=== PATIENT | female | born 1990 | race Caucasian/White ===

== ENCOUNTER 2017-10-03 21:50 | Emergency (ER) | payer MEDICARE ==
[~2017-10-03] VITALS: Ht 137.2 cm; Wt 81.6 kg
[2017-10-03] MEDS ORDERED: LACTATED RINGERS 1,000 ML IV ONE (21:53)
--- OUTSIDE RECORDS SUMMARY | 2017-10-03 21:56 | XMS REPORT | Continuity of Care Document ---
Author Author [facility] Organization [facility] Address Unknown Phone Unavailable Allergies Active Description Code Type Severity Reaction Onset Reported/Identified Relationship to Patient Clinical Status Yes cefaclor [id number] Drug Allergy Unknown N/A 10/11/2014 Yes Fish Containing Products [id number] Drug Allergy Unknown N/A 10/11/2014 Yes lorazepam [id number] Drug Allergy Unknown N/A 10/11/2014 Yes Penicillins [id number] Drug Allergy Unknown N/A 10/11/2014 Medications There is no data. Problems Date Dx Coded Attending Type Code Diagnosis Diagnosed By 05/22/2011 Ot 345.90 EPILEPSY UNSPEC W/O MENTION INTRACTABLE 05/22/2011 Ot V58.69 OT MED,LT, CURRENT USE 10/11/2014 JANE ODONNELL MACHINE TOOL BUILDER Ot 873.42 OPEN WOUND OF FOREHEAD 10/11/2014 JANE ODONNELL MACHINE TOOL BUILDER Ot E000.8 OTHER EXTERNAL CAUSE STATUS 10/11/2014 JANE ODONNELL MACHINE TOOL BUILDER Ot E849.7 ACCID IN RESIDENT INSTIT 10/11/2014 JANE ODONNELL MACHINE TOOL BUILDER Ot E884.3 FALL FROM WHEELCHAIR 10/11/2014 JANE ODONNELL MACHINE TOOL BUILDER Ot V06.1 [id number], COMBINED [ 01/23/2016 GELLENDER DOTORSTEN Ot M79.9 SOFT TISSUE DISORDER, UNSPECIFIED 01/26/2016 GELLENDER TORSTEN GUILLEN Ot M79.9 SOFT TISSUE DISORDER, UNSPECIFIED 02/02/2016 GELLENDER TORSTEN GUILLEN Ot M79.9 SOFT TISSUE DISORDER, UNSPECIFIED 02/02/2016 GELLENDER TORSTEN GUILLEN Ot M79.9 SOFT TISSUE DISORDER, UNSPECIFIED 02/04/2016 GELLENDER TORSTEN GUILLEN Ot J98.11 ATELECTASIS 02/04/2016 GELLENTORSTEN VILLASEÑOR DO Ot R91.8 OTHER NONSPECIFIC ABNORMAL FINDING OF GENNY 02/05/2016 TORSTEN SILVER DO Ot F79 UNSPECIFIED INTELLECTUAL DISABILITIES 02/05/2016 GELLENDER DO, TORSTEN A Ot R10.84 GENERALIZED ABDOMINAL PAIN 02/08/2016 GELLENDER DO, TORSTEN Ramos Ot F79 UNSPECIFIED INTELLECTUAL DISABILITIES 02/08/2016 GELLENDER DO, TORSTEN A Ot R10.84 GENERALIZED ABDOMINAL PAIN 02/13/2016 GELLENDER DO, TORSTEN Ramos Ot J18.9 PNEUMONIA, UNSPECIFIED ORGANISM 02/18/2016 GELLENDER DO, TORSTEN Ramos Ot J18.9 PNEUMONIA, UNSPECIFIED ORGANISM 03/02/2016 GELLENDER DO, TORSTEN Ramos Ot F79 UNSPECIFIED INTELLECTUAL DISABILITIES 03/02/2016 GELLENDER DO, TORSTEN Ramos Ot R10.84 GENERALIZED ABDOMINAL PAIN 03/03/2016 GELLENDER DO, TORSTEN Ramos Ot J98.11 ATELECTASIS 03/03/2016 GELLENDER DO, TORSTEN Ramos Ot R91.8 OTHER NONSPECIFIC ABNORMAL FINDING OF GENNY 03/05/2016 GELLENDER DO, TORSTEN Ramos Ot J18.9 PNEUMONIA, UNSPECIFIED ORGANISM 03/05/2016 GELLENDER DO, TORSTEN Ramos Ot F79 UNSPECIFIED INTELLECTUAL DISABILITIES 03/05/2016 GELLENDER DO, TORSTEN Ramos Ot R10.84 GENERALIZED ABDOMINAL PAIN 03/05/2016 GELLENDER DO, TORSTEN Ramos Ot J98.11 ATELECTASIS 03/05/2016 GELLENDER DO, TORSTEN Ramos Ot R91.8 OTHER NONSPECIFIC ABNORMAL FINDING OF GENNY 03/18/2016 GELLENDER DO, TORSTEN Ramos Ot J18.9 PNEUMONIA, UNSPECIFIED ORGANISM 03/18/2016 GELLENDER DO, TORSTEN Ramos Ot J18.9 PNEUMONIA, UNSPECIFIED ORGANISM 04/13/2016 GELLENDER DO, TORSTEN Ramos Ot J18.9 PNEUMONIA, UNSPECIFIED ORGANISM 04/16/2016 GELLENDER DO, TORSTEN Ramos Ot R50.9 FEVER, UNSPECIFIED 04/27/2016 GELLENDER DO, TORSTEN Ramos Ot J18.9 PNEUMONIA, UNSPECIFIED ORGANISM 05/14/2016 GELLENDER DO, TORSTEN Ramos Ot R50.9 FEVER, UNSPECIFIED 05/14/2016 GELLENDER DO, TORSTEN Ramso Ot R56.9 UNSPECIFIED CONVULSIONS 05/14/2016 GELLENDER DO, TORSTEN Ramos Ot R91.8 OTHER NONSPECIFIC ABNORMAL FINDING OF GENNY 05/14/2016 GELLENDER DO, TORSTEN Ramos Ot R50.9 FEVER, UNSPECIFIED 05/24/2016 GELLENDER DO, TORSTEN Ramos Ot R50.9 FEVER, UNSPECIFIED 06/07/2016 GELLENDER DO, TORSTEN Ramos Ot R50.9 FEVER, UNSPECIFIED 06/07/2016 GELLENDER DO, TORSTEN Ramos Ot R56.9 UNSPECIFIED CONVULSIONS 06/07/2016 GELLENDER DO, TORSTEN Ramos Ot R91.8 OTHER NONSPECIFIC ABNORMAL FINDING OF GENNY 06/11/2016 GELLENDER DOTORSTEN Ot R50.9 FEVER, UNSPECIFIED 06/11/2016 GELLENDER DO, TORSTEN Ramos Ot R56.9 UNSPECIFIED CONVULSIONS 06/11/2016 GELLENDER DO, TORSTEN Ramos Ot R91.8 OTHER NONSPECIFIC ABNORMAL FINDING OF GENNY Procedures There is no data. Results There is no data. Encounters ACCT No. Visit Date/Time Discharge Status Pt. Type Provider Facility Loc./Unit Complaint [id number] 04/15/2016 13:15:00 04/15/2016 23:59:59 CLS Outpatient TORSTEN SILVER DO [facility] RAD INCREASED TEMP, FATIGUE,WEAKNESS,FEVER [id number] 03/17/2016 09:32:00 03/17/2016 23:59:59 CLS Outpatient TORSTEN SILVER DO [facility] RAD [id number] 03/12/2016 12:11:00 03/12/2016 23:59:59 CLS Outpatient TORSTEN SILVER DO [facility] RAD CHANGE IN DIET CHECK FO ASPIRATION [id number] 02/12/2016 11:42:00 02/12/2016 23:59:59 CLS Outpatient TORSTEN SILVER DO [facility] RAD [id number] 02/03/2016 13:50:00 02/03/2016 23:59:59 CLS Outpatient TORSTEN SILVER DO [facility] RAD [id number] 02/02/2016 08:44:00 02/02/2016 23:59:59 CLS Outpatient TORSTEN SILVER DO [facility] RAD [id number] 01/22/2016 14:26:00 01/22/2016 23:59:59 CLS Outpatient TORSTEN SILVER DO [facility] RAD [id number] 10/11/2014 19:02:00 10/11/2014 19:41:00 DIS Emergency JANE ODONNELL APRN [facility] [id number] 05/22/2011 19:39:00 Document Registration
--- NOTE | 2017-10-03 22:13 | ED Fever ---
History of Present Illness General Stated Complaint: FEVER Source: EMS, [facility] records, old records (ALL [facility] IS FROM OLD RECORDS) Exam Limitations: other (PT IS NON-VERBAL/NON-COMMUNICATIVE--REPORTEDLY FROM PRIOR TRAUMATIC BRAIN INJURY) History of Present Illness Time seen by provider: 21:51 Initial Comments PT ARRIVES [facility] EMS FROM [facility] PT HAS BEEN SICK X 3 DAYS NO TESTS DONE, BUT WAS STARTED ON ZITHROMAX AND TAMIFLU THIS AFTERNOON PT HAS HAD FEVER UP TO 104 HAD TYLENOL 650 MG AT 2100 AND IBUPROFEN 400 MG AT 1900 PT VOMITED YESTERDAY, AND NO INTAKE OF FOOD OR FLUIDS TODAY, SO SENT HERE TONIGHT "FOR IV FLUIDS" PT NOTED TO HAVE OCCASIONAL LOOSE, MOIST COUGH ON ARRIVAL TO ER NO EVIDENCE OF DYSPNEA OR DISTRESS. PCP: DR SILVER Allergies and Home Medications Allergies Coded Allergies: Fish Containing Products (Unverified Allergy, Unknown, 10/11/14) Penicillins (Unverified Allergy, Unknown, 10/11/14) cefaclor (Unverified Allergy, Unknown, 10/11/14) lorazepam (Unverified Allergy, Unknown, 10/11/14) Home Medications Unable to Obtain Active Prescriptions or Reported Meds Constitutional: see HPI, fever, other (PT IS NON-VERBAL) Respiratory: cough Gastrointestinal: loss of appetite, vomiting Past Nrxmwdt-Oqauho-Nykvue Hx Patient Social History Smoking Status: Unknown if Ever Smoked Recent Foreign Travel: No Contact w/Someone Who Travel: No Immunizations Up To Date Date of Influenza Vaccine: Jul 30, 2014 Surgeries History of Surgeries: Yes (JACOB RODS IN BACK ) Surgeries: Appendectomy, Orthopedic Neurological History of Neurological Disord: Yes Neurological Disorders: Cerebral Palsy, Seizure Disorder, Traumatic Brain Injury Reproductive System Hx Reproductive Disorders: No Sexually Transmitted Disease: No Gastrointestinal History of Gastrointestinal Di: Yes Gastrointestinal Disorders: Chronic Constipation Musculoskeletal History of Musculoskeletal Dis: Yes (CEREBRAL PALSY; NON-AMBULATORY; JACOB RODS IN BACK) Musculoskeletal Disorders: Contracture Endocrine History of Endocrine Disorders: Yes (OBESITY) Endocrine Disorders: Hypothyroidsim Physical Exam Vital Signs Vital Sign - Last 12Hours 10/03/17 22:07 Temp 102.3 Pulse 105 Resp 16 B/P (MAP) 125/81 (96) Pulse Ox 95 Capillary Refill : General Appearance: no apparent distress, obese, other (SUCKING ON WET WASHCLOTH, CHEWING ON HANDS, MASK, PULSE OX, ETC. NO DISTRESS. DOES NOT APPEAR TO BE IN ANY DISCOMFORT AND DOES NOT APPEAR ILL. ) HEENT: PERRL/EOMI Respiratory: normal breath sounds, no respiratory distress, no accessory muscle use, other (OCCASIONAL LOOSE, MOIST COUGH) Cardiovascular: regular rate, rhythm, no murmur Gastrointestinal: soft Extremities: no pedal edema Neurologic/Psychiatric: other (NON-VERBAL, NON-COMMUNICATIVE. DOES NOT FOLLOW ANY COMMANDS. PT DOES APPEAR TO MOVE ALL EXTREMITIES) Skin: normal color, warm/dry Focused Exam Evaluation Lactate Level Laboratory Tests 10/03/17 22:50: Lactic Acid Level 0.66 Lactic Acid Level Laboratory Tests Test 10/03/17 22:50 Lactic Acid Level 0.66 MMOL/L (0.50-2.00) Progress/Results/Core Measures Suspected Sepsis SIRS Temperature: Pulse: Respiratory Rate: Laboratory Tests 10/03/17 22:50: White Blood Count 10.9 Blood Pressure / Mean: Laboratory Tests 10/03/17 22:50: Lactic Acid Level 0.66 Laboratory Tests 10/03/17 22:50: Creatinine 0.66, Platelet Count 256, Total Bilirubin 0.2 Results/Orders Lab Results Laboratory Tests Test 10/03/17 22:50 Range/Units White Blood Count 10.9 4.3-11.0 10^3/uL Red Blood Count 4.49 4.35-5.85 10^6/uL Hemoglobin 13.8 11.5-16.0 G/DL Hematocrit 40 35-52 % Mean Corpuscular Volume 89 80-99 FL Mean Corpuscular Hemoglobin 31 25-34 PG Mean Corpuscular Hemoglobin Concent 35 32-36 G/DL Red Cell Distribution Width 13.6 10.0-14.5 % Platelet Count 256 130-400 10^3/uL Mean Platelet Volume 9.5 7.4-10.4 FL Neutrophils (%) (Auto) 64 42-75 % Lymphocytes (%) (Auto) 21 12-44 % Monocytes (%) (Auto) 14 H 0-12 % Eosinophils (%) (Auto) 0 0-10 % Basophils (%) (Auto) 0 0-10 % Neutrophils # (Auto) 7.0 1.8-7.8 X 10^3 Lymphocytes # (Auto) 2.3 1.0-4.0 X 10^3 Monocytes # (Auto) 1.5 H 0.0-1.0 X 10^3 Eosinophils # (Auto) 0.0 0.0-0.3 10^3/uL Basophils # (Auto) 0.0 0.0-0.1 10^3/uL Sodium Level 138 135-145 MMOL/L Potassium Level 3.4 L 3.6-5.0 MMOL/L Chloride Level 112 H 98-107 MMOL/L Carbon Dioxide Level 16 L 21-32 MMOL/L Anion Gap 10 5-14 MMOL/L Blood Urea Nitrogen 9 7-18 MG/DL Creatinine 0.66 0.60-1.30 MG/DL Estimat Glomerular Filtration Rate > 60 BUN/Creatinine Ratio 14 Glucose Level 112 H 70-105 MG/DL Lactic Acid Level 0.66 0.50-2.00 MMOL/L Calcium Level 8.4 L 8.5-10.1 MG/DL Magnesium Level 2.1 1.8-2.4 MG/DL Total Bilirubin 0.2 0.1-1.0 MG/DL Aspartate Amino Transf (AST/SGOT) 18 5-34 U/L Alanine Aminotransferase (ALT/SGPT) 26 0-55 U/L Alkaline Phosphatase 63 40-136 U/L Total Protein 6.7 6.4-8.2 GM/DL Albumin 3.5 3.2-4.5 GM/DL Free Thyroxine 0.99 0.70-1.48 NG/DL TSH [place] Testing 0.21 L 0.35-4.94 UIU/ML Micro Results Microbiology 10/03/17 Influenza Types A,B Antigen (DAVID) - Final, Complete My Orders Orders - CARLO SILVER DO Saline Lock/Iv-Start (10/03/17 21:53) O2 (10/03/17 21:53) Monitor-Rhythm Ecg Trace Only (10/03/17 21:53) Cbc With Automated Diff (10/03/17 21:53) Comprehensive Metabolic Panel (10/03/17 21:53) Lactic Acid Analyzer (10/03/17 21:53) Magnesium (10/03/17 21:53) Blood Culture (10/03/17 21:53) Influenza A And B Antigens (10/03/17 21:53) Chest 1 View, Ap/Pa Only (10/03/17 21:53) Saline Lock/Iv-Start (10/03/17 21:53) Lactated Ringers (Lr 1000 Ml Iv Solution (10/03/17 21:53) Thyroid Analyzer (10/03/17 21:55) Free T4 (Free Thyroxine) (10/03/17 22:50) Rx-Ondansetron Po (Rx-Zofran Po) (10/03/17 23:51) Acetaminophen Oral Solution (Tylenol Ora (10/04/17 00:00) Ibuprofen Suspension (Motrin Suspension) (10/04/17 00:00) Medications Given in ED Current Medications Medications Dose Ordered Sig/Richi Route Start Time Stop Time Status Last Admin Dose Admin Acetaminophen 975 mg ONCE ONCE PO 10/04/17 00:00 10/04/17 00:01 DC 10/04/17 00:17 975 MG Ibuprofen 800 mg ONCE ONCE PO 10/04/17 00:00 10/04/17 00:01 DC 10/04/17 00:17 800 MG Lactated Ringer's 1,000 ml @ 0 mls/hr Q0M ONCE IV 10/03/17 21:53 10/03/17 21:56 DC 10/03/17 23:59 0 MLS/HR Vital Signs/I&O Vital Sign - Last 12Hours 10/03/17 22:07 Temp 102.3 Pulse 105 Resp 16 B/P (MAP) 125/81 (96) Pulse Ox 95 Capillary Refill : Progress Note : Progress Note UNEVENTFUL ER STAY--NO DYSPNEA, RARE COUGH, VITALS STABLE, NO VOMITING DURING ER STAY TEMP DOWN AT DISMISSAL AND PT ACTUALLY SMILING AT TIME OF DISMISSAL. Diagnostic Imaging Comments CXR--POOR INSPIRATORY EFFORT, NO OBVIOUS ACUTE PROCESS, PENDING RADIOLOGIST REVIEW Reviewed: Reviewed by Me Departure Communication (Admissions) Progress Notes [id number]--SPOKE WITH DR. SILVER, ADVISES TO SEND BACK TO [facility], AND HE WILL ARRANGE FOR REPEAT LAB TO BE DONE IN AM. Impression Impression: Primary Impression: Influenza A Disposition: 03 XFER SNF Condition: Stable Departure-Patient Inst. Referrals: TORSTEN SILVER DO (PCP/Family) Primary Care Physician Patient Instructions: Flu, Adult (DC) Add. Discharge Instructions: LOTS OF CLEAR LIQUIDS TYLENOL AND MOTRIN NEEDED FOR PAIN OR FEVER CONTINUE TAMIFLU AND ZITHROMAX ORDERED CONTINUE ALL REGULAR MEDICATIONS FOLLOW UP WITH DR. SILVER FOR FURTHER CARE--CALL AT 09:30 IN THE MORNING FOR FOLLOW UP TESTS Scripts Unable to Obtain Active Prescriptions or Reported Meds CARLO SILVER DO Oct 03, 2017 22:13
[2017-10-03 22:59] LABS: BASOPHILS % (AUTO) 0 % (0-10); EOSINOPHILS % (AUTO) 0 % (0-10); HEMATOCRIT 40 % (35-52); HEMOGLOBIN 13.8 G/DL (11.5-16.0); LYMPHOCYTES # (AUTO) 2.3 X 10^3 (1.0-4.0); LYMPHOCYTES % (AUTO) 21 % (12-44); MEAN CORPUSCULAR HEMOGLOBIN 31 PG (25-34); MEAN CORPUSCULAR HGB CONC 35 G/DL (32-36); MEAN CORPUSCULAR VOLUME 89 FL (80-99); MEAN PLATELET VOLUME 9.5 FL (7.4-10.4); MONOCYTES # (AUTO) 1.5 X 10^3 (0.0-1.0); MONOCYTES % (AUTO) 14 % (0-12); NEUTROPHILS % (AUTO) 64 % (42-75); PLATELET COUNT 256 10^3/uL (130-400); RED BLOOD COUNT 4.49 10^6/uL (4.35-5.85); RED CELL DISTRIBUTION WIDTH 13.6 % (10.0-14.5); WHITE BLOOD COUNT 10.9 10^3/uL (4.3-11.0)
[2017-10-03 23:18] LABS: ALANINE AMINOTRANSFERASE 26 U/L (0-55); ALBUMIN 3.5 GM/DL (3.2-4.5); ALKALINE PHOSPHATASE 63 U/L (40-136); BILIRUBIN,TOTAL 0.2 MG/DL (0.1-1.0); BUN/CREATININE RATIO 14; CALCIUM 8.4 MG/DL (8.5-10.1); CARBON DIOXIDE 16 MMOL/L (21-32); CHLORIDE 112 MMOL/L (98-107); CREATININE SERUM 0.66 MG/DL (0.60-1.30); GFR ESTIMATED > 60; GLUCOSE 112 MG/DL (70-105); MAGNESIUM 2.1 MG/DL (1.8-2.4); POTASSIUM 3.4 MMOL/L (3.6-5.0); SODIUM 138 MMOL/L (135-145); TOTAL PROTEIN 6.7 GM/DL (6.4-8.2)
[2017-10-03 23:38] LABS: TSH (THYROID ANALYZER) 0.21 UIU/ML (0.35-4.94)
[2017-10-03] MEDS ORDERED: RX-ONDANSETRON 4 MG ODT (ZOFRAN) PPK #4 PO STA (23:51)
[2017-10-04] MEDS ORDERED: IBUPROFEN SUSP 100MG/5ML (MOTRIN) UDC PO ONE
[2017-10-04] MEDS ORDERED: APAP 325 MG/10.15 ML LIQ (TYLENOL) UDC PO ONE
[2017-10-04 00:13] LABS: FREE T4 (FREE THYROXINE) 0.99 NG/DL (0.70-1.48)
[2017-10-04 01:15] VITALS: BP 125/81
--- NOTE | 2017-10-04 06:49 | Diagnostic Imaging Report ---
INDICATION: Fever and cough. COMPARISON: 04/15/2016 FINDINGS: Upright portable view of the chest is obtained. Heart size is prominent but unchanged. There is no central venous congestion. There is no pneumothorax, mediastinal widening or pleural fluid suspected. Lung volumes are low. Allowing for this, lungs appear clear. Long posterior fusion spinal rods are again demonstrated. IMPRESSION: No evidence of an acute cardiopulmonary abnormality. No significant interval change from the prior study. Dictated by: Dictated on workstation # [id number]
== END 2017-10-04 01:15 ==
LOC: EDUNIT# 21:50 → ER 21:52
DX: J10.1 Influenza due to other identified influenza virus with other respiratory manifestations (principal); G40.909 Epilepsy, unspecified, not intractable, without status epilepticus; G80.9 Cerebral palsy, unspecified; E66.9 Obesity, unspecified; E03.9 Hypothyroidism, unspecified; Z90.49 Acquired absence of other specified parts of digestive tract; Z68.41 Body mass index [BMI] 40.0-44.9, adult; Z87.820 Personal history of traumatic brain injury
CPT/HCPCS: 36415; 71045; 80053; 83605; 83735; 84439; 84443; 85025; 87040; 87804; 93041; 96360

== ENCOUNTER → 2019-10-07 | Outpatient (CLI) | payer MEDICARE | LOC: LABNPT 10:56 | PROVIDERS: ATTEND Family Medicine | DX: Z01.89 Encounter for other specified special examinations (principal) | CPT/HCPCS: 87088 ==

== ENCOUNTER 2022-06-10 17:17 | Emergency (ER) | payer MEDICARE ==
[~2022-06-10] VITALS: Ht 163 cm; Wt 86.9 kg
[2022-06-10] MEDS ORDERED: L.E.T. SOLUTION 3 ML SYR ONE (17:23)
[2022-06-10] MEDS ORDERED: L.E.T. SOLUTION 3 ML SYR TOP ONE (17:30)
--- NOTE | 2022-06-10 17:38 | ED Head Injury ---
General Chief Complaint: Laceration Stated Complaint: FALL W EYEBROW LAC Source: patient Exam Limitations: no limitations History of Present Illness Date Seen by Provider: Jun 10, 2022 Time Seen by Provider: 17:24 Initial Comments Here with 2.5 cm laceration above the right eyebrow that occurred when she fell forward out of the wheelchair. No loss of consciousness. Bleeding controlled. No other injury. She does have significant MR and is at [facility]. Occurred: just prior to arrival Severity: mild Location: frontal Method of Injury: fell Loss of Consciousness: no loss of consciousness Allergies and Home Medications Allergies Coded Allergies: Fish Containing Products (Unverified Allergy, Unknown, 10/11/14) Penicillins (Unverified Allergy, Unknown, 10/11/14) cefaclor (Unverified Allergy, Unknown, 10/11/14) lorazepam (Unverified Allergy, Unknown, 10/11/14) Patient Home Medication List Home Medication List Reviewed: Yes Unable to Obtain Active Prescriptions or Reported Meds Review of Systems Review of Systems Constitutional: No chills, No fever Skin: see HPI, lesions, other (Horizontal wound above the right breast described in HPI) Patient with severe MR and nonverbal but no reported vomiting, loss of consciousness and does not appear to be in significant pain. Bleeding controlled. Past Qjvnxjz-Dxpcfv-Xjunnp Hx Patient Social History Tobacco Use?: No Past Medical History Surgeries: Yes (JACOB RODS IN BACK ) Appendectomy, Orthopedic Respiratory: No Cardiac: No Neurological: Yes Cerebral Palsy, Seizure Disorder, Traumatic Brain Injury Reproductive Disorders: No Sexually Transmitted Disease: No Genitourinary: No Gastrointestinal: Yes Chronic Constipation Musculoskeletal: Yes (CEREBRAL PALSY; NON-AMBULATORY; JACOB RODS IN BACK) Contracture Endocrine: Yes (OBESITY) Hypothyroidsim Cancer: No Psychosocial: No Integumentary: No Blood Disorders: No Family Medical History Reviewed Nursing Family Hx Physical Exam Vital Signs Capillary Refill : Height, Weight, BMI Height: 4'6.00" Weight: 180lbs. oz. 81.578770kd; BMI Method:Estimated General Appearance: WD/WN, no apparent distress HEENT: PERRL/EOMI Cardiovascular: regular rate, rhythm, no murmur Respiratory: lungs clear, normal breath sounds Gastrointestinal: non tender, soft Extremities: non-tender, normal inspection Psychiatric: alert, oriented x 3 Crainal Nerves: other (Underlying MR that is unchanged.) Skin: warm/dry, other (2.5 cm horizontal laceration above right brow with ble eding controlled that is superficial.) Salbador Coma Score Best Eye Response: (4) Open Spontaneously Best Verbal Response: (5) Oriented Best Motor Response: (6) Obeys Commands Procedures/Interventions Wound Location: Face Other Wound Location Right brow Wound Length (cm): 2.5 Wound's Depth, Shape: superficial Wound Explored: contaminated Irrigated w/ Saline (ccs): 25 Wound Debrided: minimal Other Closure Supply: Wound Adhesive Progress Successfully closed with wound adhesive after cleaning. Tolerated procedure well with no complications. Progress/Results/Core Measures Results/Orders My Orders Orders - OLGA GREGG MD Let Solution (Let Solution) (06/10/22 17:30) Let Solution (Let Solution) (06/10/22 17:23) Dipht,Pertuss(Acell),Tet Adult (Boostrix (06/10/22 18:00) Medications Given in ED Current Medications Medications Dose Ordered Sig/Richi Route Start Time Stop Time Status Last Admin Dose Admin Diphtheria/ Tetanus/Acell Pertussis 0.5 ml ONCE ONCE IM 06/10/22 18:00 06/10/22 18:01 DC 06/10/22 18:08 0.5 ML Tetracaine/ Epinephrine/ Lidocaine 3 ml ONCE ONCE TOP 06/10/22 17:30 06/10/22 17:31 DC 06/10/22 17:31 3 ML Progress Progress Note : Progress Note Seen and evaluated. Wound cleaned with saline and soap. Bleeding controlled. Covered with LET. Closed with skin glue after anesthesia with good approximation. [facility]. Tetanus updated. Family verbalized understanding instructions and agreement with plan. Departure Impression Primary Impression: Forehead laceration Qualified Codes: S01.81XA - Laceration without foreign body of other part of head, initial encounter Disposition: HOME, SELF-CARE Condition: Stable Departure-Patient Inst. Decision time for Depature: 18:09 Referrals: TORSTEN SILVER DO (PCP/Family) Primary Care Physician Patient Instructions: Laceration Repair With Glue (DC) Add. Discharge Instructions: All discharge instructions reviewed with patient and/or family. Voiced understanding. May cover with dry Band-Aid for the next several days as needed to prevent picking of the wound. Skin glue will fall off on its own over the next 5 to 7 days. Do not apply lotions or creams to the wound but you can gently wash hair and face as needed. Do not soak wound as this will cause premature falling off of wound. Return for increasing redness, swelling, foul-smelling drainage or other concerns as needed. Scripts Unable to Obtain Active Prescriptions or Reported Meds OLGA GREGG MD Jun 10, 2022 17:38
[2022-06-10] MEDS ORDERED: TETANUS,DIPTH,PERTUSS P/F (BOOSTRIX) 0.5 ML VIAL IM ONE (18:00)
[2022-06-10 18:40] VITALS: BP 100/72
== END 2022-06-10 18:40 | disposition home or self-care (01) ==
LOC: EDUNIT# 17:17 → ER 17:19
DX: S01.81XA Laceration without foreign body of other part of head, initial encounter (principal); S01.111A Laceration without foreign body of right eyelid and periocular area, initial encounter; E66.9 Obesity, unspecified; Z23 Encounter for immunization; W05.0XXA Fall from non-moving wheelchair, initial encounter
CPT/HCPCS: 12051; 90715